=== PATIENT | male | born 1970 | race Caucasian/White ===

== ENCOUNTER → 2022-08-02 | Day surgery (SDC) | payer BC ==
[~2022-08-02] MED LIST: GLUCAGON FOR INJ 1 MG VIAL ONE; LIDOCAINE HCL 2% LOCAL INJ 5 ML SDV VIAL INJ ONE; MIDAZOLAM HCL 2 MG/2 ML VIAL ONE; PROPOFOL IV EMULSION 10 MG/ML 20 ML VIAL ONE
[2022-08-02 14:50] VITALS: BP 125/87
== END | disposition home or self-care (01) ==
LOC: OR 12:19
PROVIDERS: ATTEND Internal Medicine Gastroenterology
DX: R19.5 Other fecal abnormalities (principal); D12.0 Benign neoplasm of cecum; D12.5 Benign neoplasm of sigmoid colon; K64.8 Other hemorrhoids; Z71.3 Dietary counseling and surveillance; C69.92 Malignant neoplasm of unspecified site of left eye; Z68.28 Body mass index [BMI] 28.0-28.9, adult
CPT/HCPCS: 45380; 45385; J1610; J2001; J2250; J2704; 43239; 45378